=== PATIENT | male | born 2000 ===

== ENCOUNTER → 2022-02-10 | Day surgery (SDC) | payer OTHER ==
[~2022-02-10] MED LIST: EPINEPHrine 1 MG/ML AMP ONE; Gadobenate Dimeglumine 529 MG/1 ML (20ML VIAL) ONE; Iopamidol 300 61% 50 ML VIAL FS ONE; Lidocaine 1% MPF 2 ML VIAL ONE
== END ==
LOC: RAD 09:38
PROVIDERS: ATTEND Orthopaedic Surgery
PROC: BP3 Imaging, Non-Axial Upper Bones, Magnetic Resonance Imaging (MRI) (ICD-10-PCS; principal; 2022-02-10)
DX: S53.441A Ulnar collateral ligament sprain of right elbow, initial encounter (principal); M21.821 Other specified acquired deformities of right upper arm; X58.XXXA Exposure to other specified factors, initial encounter
CPT/HCPCS: 24220; A9577; J0171; Q9967